=== PATIENT | female | born 1940 | race Caucasian/White ===

== ENCOUNTER 2019-03-06 19:13 | Inpatient (IN) ==
[2019-03-06 20:01] LABS: Basophils # 0.1 K/mcL (0.0-0.2); Basophils % 0.5 %; Bilirubin,Urine Negative (Negative); Blood,Urine Negative (Negative); Clarity,Urine Cloudy (Clear); Color,Urine Yellow (Yellow); Eosinophils # 0.1 K/mcL (0.0-0.6); Eosinophils % 1.3 %; Glucose,Urine (UA) Normal (Normal); Hematocrit 41.8 % (35.3-44.9); Hemoglobin 14.1 g/dL (11.5-15.4); Immature Granulocytes % 0.3 % (0-4); Ketones,Urine Negative (Negative); Leukocyte Esterase,Urine Negative (Negative); Lymphocytes # 2.7 K/mcL (0.6-4.6); Lymphocytes % 25.3 %; Mean Corpuscular HGB Conc 33.7 g/dL (31.6-35.5); Mean Corpuscular Hemoglobin 33.7 pg (28.0-33.3); Mean Corpuscular Volume 99.8 fL (83.0-100.0); Mean Platelet Volume 8.9 fL (9.4-12.4); Monocytes # 0.9 K/mcL (0.0-1.3); Neutrophils # 6.9 K/mcL (1.6-8.9); Nitrite,Urine Negative (Negative); Platelet Count 368 K/mcL (140-400); Protein,Urine 30 mg/dL (Neg-Trace); Red Blood Count 4.19 M/mcL (3.82-4.97); Red Cell Distribution Width 13.9 % (11.5-14.5); Segmented Neutrophils % 64.6 %; Specific Gravity,Urine 1.018 (1.010-1.025); Urobilinogen,Urine Normal (Normal); White Blood Count 10.7 K/mcL (4.3-11.1)
[2019-03-06 20:02] LABS: Bacteria,Urine Moderate per hpf (None-Few); Squamous Epithelial Cell,Urine Many per lpf (None-Few)
[2019-03-06 20:19] LABS: Hyaline Casts,Urine Few per lpf (None-Few); RBC,Urine 0-3 per hpf (0-3)
[2019-03-06 20:23] LABS: Potassium 3.6 mEq/L (3.5-5.1)
[2019-03-06 20:24] LABS: Troponin I 0.03 ng/mL (< 0.04)
[2019-03-06 20:43] LABS: Prothrombin Time 22.2 Seconds (9.4-12.1)
[2019-03-06] MEDS ORDERED: Naloxone 0.4 MG/ML INJ IVP PRN (21:41)
[2019-03-07] MEDS ORDERED: *HR* HYDROcodone/Acet 5/325 mg TABLET PO PRN (00:01)
[2019-03-07 00:42] LABS: Basophils % 0.4 %; Eosinophils # 0.1 K/mcL (0.0-0.6); Eosinophils % 1.1 %; Hematocrit 42.1 % (35.3-44.9); Hemoglobin 13.7 g/dL (11.5-15.4); Immature Granulocytes % 0.2 % (0-4); Lymphocytes # 2.9 K/mcL (0.6-4.6); Lymphocytes % 31.2 %; Mean Corpuscular HGB Conc 32.5 g/dL (31.6-35.5); Mean Corpuscular Hemoglobin 33.2 pg (28.0-33.3); Mean Corpuscular Volume 101.9 fL (83.0-100.0); Mean Platelet Volume 9.2 fL (9.4-12.4); Monocytes # 0.7 K/mcL (0.0-1.3); Monocytes % 7.4 %; Neutrophils # 5.6 K/mcL (1.6-8.9); Platelet Count 343 K/mcL (140-400); Red Blood Count 4.13 M/mcL (3.82-4.97); Red Cell Distribution Width 13.8 % (11.5-14.5); Segmented Neutrophils % 59.7 %; White Blood Count 9.4 K/mcL (4.3-11.1)
[2019-03-07 01:02] LABS: Calcium 9.1 mg/dL (8.6-10.3); Potassium 3.6 mEq/L (3.5-5.1)
[2019-03-07] MEDS: Furosemide 20 MG TABLET PO SCH ×2 (09:55→18:05)
[2019-03-07] MEDS: Acetaminophen 325 MG TABLET PO PRN ×2 (09:55→14:29)
[2019-03-07] MEDS: Metoprolol XL (24 HR) Succ 50 MG TAB.ER.24H PO SCH (09:55)
[2019-03-07] MEDS ORDERED: levoFLOXacin 750 MG TABLET PO SCH (12:00)
[2019-03-07] MEDS ORDERED: Erythromycin OPTH Oint BOTH EYES SCH (13:00)
[2019-03-07] MEDS ORDERED: *HR* Rivaroxaban 10 MG TABLET PO SCH (17:00)
[2019-03-07] MEDS ORDERED: Metoprolol XL (24 HR) Succ 50 MG TAB.ER.24H PO SCH ×2 (18:00)
[2019-03-07] MEDS ORDERED: Melatonin 3 MG TABLET PO SCH (21:00)
[2019-03-08] MEDS: Acetaminophen 325 MG TABLET PO PRN (03:06)
[2019-03-08] MEDS ORDERED: Metoclopramide 10 MG/2 ML VIAL IVP ONE (04:36)
[2019-03-08 06:43] VITALS: BP 124/79
[2019-03-08] MEDS: Metoprolol XL (24 HR) Succ 50 MG TAB.ER.24H PO SCH (10:40)
[2019-03-08] MEDS: Furosemide 20 MG TABLET PO SCH (10:40)
== END 2019-03-08 12:18 | disposition home or self-care (01) | DRG 308 ==
LOC: EMEROOARM 19:13 → 3BNU 19:13
PROVIDERS: ADMIT Internal Medicine; ATTEND Internal Medicine

== ENCOUNTER 2019-05-09 13:15 | Inpatient (IN) ==
[2019-05-09 14:13] LABS: Basophils % 0.4 %; Eosinophils # 0.1 K/mcL (0.0-0.6); Eosinophils % 1.2 %; Hematocrit 44.9 % (35.3-44.9); Hemoglobin 14.3 g/dL (11.5-15.4); Immature Granulocytes % 0.3 % (0-4); Lymphocytes # 2.4 K/mcL (0.6-4.6); Lymphocytes % 22.7 %; Mean Corpuscular HGB Conc 31.8 g/dL (31.6-35.5); Mean Corpuscular Hemoglobin 32.4 pg (28.0-33.3); Mean Corpuscular Volume 101.8 fL (83.0-100.0); Mean Platelet Volume 9.1 fL (9.4-12.4); Monocytes # 0.8 K/mcL (0.0-1.3); Monocytes % 7.5 %; Neutrophils # 7.2 K/mcL (1.6-8.9); Platelet Count 321 K/mcL (140-400); Red Blood Count 4.41 M/mcL (3.82-4.97); Red Cell Distribution Width 13.8 % (11.5-14.5); Segmented Neutrophils % 67.9 %; White Blood Count 10.6 K/mcL (4.3-11.1)
[2019-05-09] MEDS ORDERED: Amiodarone Premix 150 MG/100 ML BAG IVPB ONE (14:37)
[2019-05-09] MEDS ORDERED: Amiodarone Premix 360 MG/200 ML BAG IVC ONE (14:41)
[2019-05-09 15:14] LABS: Thyroid Stimulating Hormone 3.442 mcIU/mL (0.340-5.600); Troponin I 0.05 ng/mL (< 0.04)
[2019-05-09 15:26] LABS: Calcium 9.1 mg/dL (8.6-10.3); Potassium 3.7 mEq/L (3.5-5.1)
[2019-05-09] MEDS ORDERED: Naloxone 0.4 MG/ML INJ IVP PRN (15:26)
[2019-05-09] MEDS ORDERED: *HR* Rivaroxaban 10 MG TABLET PO SCH (18:00)
[2019-05-09] MEDS: Furosemide 20 MG TABLET PO SCH (20:22)
[2019-05-09] MEDS: lisinopriL 5 MG TABLET PO SCH (20:22)
[2019-05-09] MEDS: Amiodarone Premix 360 MG/200 ML BAG IVC SCH (21:23)
[2019-05-10 05:24] LABS: Basophils % 0.4 %; Eosinophils # 0.1 K/mcL (0.0-0.6); Eosinophils % 1.1 %; Hematocrit 40.8 % (35.3-44.9); Hemoglobin 13.4 g/dL (11.5-15.4); Immature Granulocytes % 0.2 % (0-4); Lymphocytes # 2.8 K/mcL (0.6-4.6); Lymphocytes % 27.6 %; Mean Corpuscular HGB Conc 32.8 g/dL (31.6-35.5); Mean Corpuscular Hemoglobin 33.1 pg (28.0-33.3); Mean Corpuscular Volume 100.7 fL (83.0-100.0); Mean Platelet Volume 9.3 fL (9.4-12.4); Monocytes # 0.8 K/mcL (0.0-1.3); Monocytes % 7.7 %; Neutrophils # 6.4 K/mcL (1.6-8.9); Platelet Count 304 K/mcL (140-400); Red Blood Count 4.05 M/mcL (3.82-4.97); Red Cell Distribution Width 13.7 % (11.5-14.5); White Blood Count 10.1 K/mcL (4.3-11.1)
[2019-05-10 05:45] LABS: Calcium 8.9 mg/dL (8.6-10.3); Potassium 3.6 mEq/L (3.5-5.1)
[2019-05-10 05:48] LABS: Troponin I 0.06 ng/mL (< 0.04)
[2019-05-10] MEDS: Furosemide 20 MG TABLET PO SCH ×2 (09:32→21:54)
[2019-05-10] MEDS: Multivit/Ca/Min/Fe/FA 1 TAB TABLET PO SCH ×2 (09:32→12:16)
[2019-05-10] MEDS: Ascorbic Acid 500 MG TABLET PO SCH ×2 (09:32→12:16)
[2019-05-10] MEDS: Metoprolol XL (24 HR) Succ 50 MG TAB.ER.24H PO SCH ×2 (09:33→21:54)
[2019-05-10] MEDS: lisinopriL 5 MG TABLET PO SCH ×2 (09:33→21:54)
[2019-05-10] MEDS: Patient Taking Own Medication 1 EACH PO SCH (09:34)
[2019-05-10] MEDS: MSM PO SCH (09:34)
[2019-05-10] MEDS: [UNRECOGNIZED DRUG - OTHER] PO SCH (09:34)
[2019-05-10] MEDS: GLUCOSAMINE PO SCH (09:34)
[2019-05-10] MEDS: Amiodarone Premix 360 MG/200 ML BAG IVC SCH ×2 (11:34→23:37)
[2019-05-10 14:07] LABS: Hematocrit 41.3 % (35.3-44.9); Hemoglobin 13.3 g/dL (11.5-15.4); Mean Corpuscular HGB Conc 32.2 g/dL (31.6-35.5); Mean Corpuscular Hemoglobin 32.5 pg (28.0-33.3); Platelet Count 275 K/mcL (140-400); Red Blood Count 4.09 M/mcL (3.82-4.97); Red Cell Distribution Width 13.7 % (11.5-14.5); White Blood Count 9.3 K/mcL (4.3-11.1)
[2019-05-10] MEDS: Heparin 25,000 UNIT/250 ML D5W 25,000 UNIT/250 ML IV.SOLN IVC SCH (17:45)
[2019-05-10] MEDS: *HR* Promethazine 25 MG/ML VIAL IVP PRN ×2 (17:45→23:38)
[2019-05-10] MEDS ORDERED: *HR* Heparin 5,000 UNIT/ML VIAL IVP ONE ×2 (18:00)
[2019-05-10] MEDS ORDERED: *HR* Heparin 5,000 UNIT/ML VIAL IVP PRN ×2 (18:00)
[2019-05-10] MEDS ORDERED: Heparin 25,000 UNIT/250 ML D5W 25,000 UNIT/250 ML IV.SOLN IVC SCH (18:00)
[2019-05-10 18:55] LABS: INR 1.8; Prothrombin Time 20.5 Seconds (9.4-12.1)
[2019-05-10 18:58] LABS: Activated Partial Thrombo Time 46.2 Seconds (26.0-36.0)
[2019-05-11 01:04] LABS: Potassium 3.9 mEq/L (3.5-5.1)
[2019-05-11] MEDS ORDERED: 0.9 % Sodium Chloride 1,000 ML IVC SCH ×2 (08:30→08:47)
[2019-05-11] MEDS: Multivit/Ca/Min/Fe/FA 1 TAB TABLET PO SCH (08:35)
[2019-05-11] MEDS: Metoprolol XL (24 HR) Succ 50 MG TAB.ER.24H PO SCH ×2 (08:35→20:42)
[2019-05-11] MEDS: Furosemide 20 MG TABLET PO SCH ×2 (08:35→20:42)
[2019-05-11] MEDS: MSM PO SCH (08:36)
[2019-05-11] MEDS: GLUCOSAMINE PO SCH (08:36)
[2019-05-11] MEDS: lisinopriL 5 MG TABLET PO SCH ×2 (08:36→20:42)
[2019-05-11] MEDS: Patient Taking Own Medication 1 EACH PO SCH (08:36)
[2019-05-11] MEDS: [UNRECOGNIZED DRUG - OTHER] PO SCH (08:36)
[2019-05-11] MEDS ORDERED: ISOVUE-370 200 ML INFUS..BTL ONE ×2 (13:16→13:17)
[2019-05-11] MEDS ORDERED: *HR* Heparin 10,000 UNIT/10 ML VIAL ONE (13:16)
[2019-05-11] MEDS ORDERED: Nitroglycerin 1,000 MCG/10 ML VIAL IV ONE (13:16)
[2019-05-11] MEDS ORDERED: Heparin 1,000 UNITS/500 mL 500 ML ONE (13:16)
[2019-05-11] MEDS ORDERED: 0.9 % Sodium Chloride 2,000 ML ONE (13:16)
[2019-05-11] MEDS ORDERED: *HR* FentaNYL (PF) 100 MCG/2 ML VIAL ONE (13:58)
[2019-05-11] MEDS ORDERED: *HR* Midazolam HCl 2 MG/2 ML VIAL ONE (13:58)
[2019-05-11] MEDS: *HR* Amiodarone 200 MG TABLET PO SCH (20:42)
[2019-05-11] MEDS: Heparin 25,000 UNIT/250 ML D5W 25,000 UNIT/250 ML IV.SOLN IVC SCH (20:54)
[2019-05-12 05:47] LABS: Calcium 8.8 mg/dL (8.6-10.3); Potassium 3.7 mEq/L (3.5-5.1)
[2019-05-12] MEDS: lisinopriL 5 MG TABLET PO SCH (08:23)
[2019-05-12] MEDS: Furosemide 20 MG TABLET PO SCH (08:23)
[2019-05-12] MEDS: Multivit/Ca/Min/Fe/FA 1 TAB TABLET PO SCH (08:23)
[2019-05-12] MEDS: *HR* Amiodarone 200 MG TABLET PO SCH (08:23)
[2019-05-12] MEDS: Metoprolol XL (24 HR) Succ 50 MG TAB.ER.24H PO SCH (08:23)
[2019-05-12] MEDS: Ascorbic Acid 500 MG TABLET PO SCH (08:23)
[2019-05-12] MEDS: MSM PO SCH (08:24)
[2019-05-12] MEDS: Patient Taking Own Medication 1 EACH PO SCH (08:24)
[2019-05-12] MEDS: [UNRECOGNIZED DRUG - OTHER] PO SCH (08:24)
[2019-05-12] MEDS: GLUCOSAMINE PO SCH (08:24)
[2019-05-12 11:11] VITALS: BP 131/81
[2019-05-12] MEDS ORDERED: *HR* Rivaroxaban 10 MG TABLET PO SCH (14:00)
== END 2019-05-12 16:27 | disposition home health service (06) | DRG 286 ==
LOC: EMEROOARM 13:15 → 2NNU 13:15 → SUATTDRO 15:27 → 2NNU 16:37
PROVIDERS: ADMIT Internal Medicine; ATTEND Family Medicine

== ENCOUNTER 2019-05-15 00:50 | Inpatient (IN) ==
[2019-05-15] MEDS ORDERED: Acetaminophen 325 MG TABLET PO PRN (04:00)
[2019-05-15] MEDS ORDERED: Naloxone 0.4 MG/ML INJ IVP PRN (04:00)
[2019-05-15] MEDS ORDERED: *HR* Promethazine 25 MG/ML VIAL IVP PRN (04:00)
[2019-05-15] MEDS ORDERED: D5% in Water 1,000 ML IVC PRN (04:05)
[2019-05-15] MEDS ORDERED: Dextrose Gel 15 GM/37.5 ML TUBE PO PRN ×2 (04:05)
[2019-05-15] MEDS ORDERED: *HR* Dextrose 50 % in Water (Syg) 50 ML SYRINGE IVP PRN (04:05)
[2019-05-15 05:28] LABS: Basophils % 0.3 %; Eosinophils # 0.1 K/mcL (0.0-0.6); Hematocrit 40.9 % (35.3-44.9); Hemoglobin 13.1 g/dL (11.5-15.4); Immature Granulocytes % 0.4 % (0-4); Lymphocytes # 2.3 K/mcL (0.6-4.6); Lymphocytes % 24.6 %; Mean Corpuscular Hemoglobin 32.6 pg (28.0-33.3); Mean Corpuscular Volume 101.7 fL (83.0-100.0); Mean Platelet Volume 9.4 fL (9.4-12.4); Monocytes # 0.8 K/mcL (0.0-1.3); Monocytes % 8.6 %; Platelet Count 297 K/mcL (140-400); Red Blood Count 4.02 M/mcL (3.82-4.97); Red Cell Distribution Width 13.9 % (11.5-14.5); Segmented Neutrophils % 65.1 %; White Blood Count 9.2 K/mcL (4.3-11.1)
[2019-05-15 05:41] LABS: Prothrombin Time 33.7 Seconds (9.4-12.1)
[2019-05-15 05:50] LABS: Calcium 8.4 mg/dL (8.6-10.3); Magnesium 1.8 mg/dL (1.6-2.6); Phosphorous 4.1 mg/dL (2.7-4.5); Potassium 3.3 mEq/L (3.5-5.1)
[2019-05-15 05:57] LABS: Troponin I 0.46 ng/mL (< 0.04)
[2019-05-15] MEDS: Insulin LISPRO 300 UNITS/3 ML VIAL SQ SCH ×3 (09:01→16:35)
[2019-05-15] MEDS: *HR* Amiodarone 200 MG TABLET PO SCH ×2 (13:09→21:30)
[2019-05-15] MEDS: Metoprolol XL (24 HR) Succ 50 MG TAB.ER.24H PO SCH ×2 (13:09→21:30)
[2019-05-15] MEDS: Furosemide 20 MG TABLET PO SCH (16:39)
[2019-05-15] MEDS ORDERED: *HR* Rivaroxaban 10 MG TABLET PO SCH (18:00)
[2019-05-15] MEDS ORDERED: Insulin LISPRO 300 UNITS/3 ML VIAL SQ SCH (21:00)
[2019-05-15] MEDS: lisinopriL 5 MG TABLET PO SCH (21:30)
[2019-05-16] MEDS: Insulin LISPRO 300 UNITS/3 ML VIAL SQ SCH (07:50)
[2019-05-16] MEDS: Furosemide 20 MG TABLET PO SCH (08:10)
[2019-05-16] MEDS: *HR* Amiodarone 200 MG TABLET PO SCH ×2 (08:10→22:32)
[2019-05-16] MEDS: lisinopriL 5 MG TABLET PO SCH ×2 (08:11→22:32)
[2019-05-16] MEDS: Metoprolol XL (24 HR) Succ 50 MG TAB.ER.24H PO SCH ×2 (08:11→22:32)
[2019-05-16] MEDS ORDERED: *HR* Amiodarone 200 MG TABLET PO ONE (10:00)
[2019-05-16 13:05] LABS: Basophils % 0.4 %; Eosinophils # 0.2 K/mcL (0.0-0.6); Eosinophils % 2.3 %; Hematocrit 42.1 % (35.3-44.9); Hemoglobin 13.5 g/dL (11.5-15.4); Immature Granulocytes % 0.6 % (0-4); Lymphocytes # 2.3 K/mcL (0.6-4.6); Lymphocytes % 25.2 %; Mean Corpuscular HGB Conc 32.1 g/dL (31.6-35.5); Mean Corpuscular Hemoglobin 32.8 pg (28.0-33.3); Mean Corpuscular Volume 102.2 fL (83.0-100.0); Mean Platelet Volume 9.2 fL (9.4-12.4); Monocytes # 0.7 K/mcL (0.0-1.3); Monocytes % 7.2 %; Neutrophils # 5.8 K/mcL (1.6-8.9); Nucleated Red Blood Cells 0.2 /100 WBC (0); Platelet Count 309 K/mcL (140-400); Red Blood Count 4.12 M/mcL (3.82-4.97); Red Cell Distribution Width 14.2 % (11.5-14.5); Segmented Neutrophils % 64.3 %
[2019-05-16 13:37] LABS: Calcium 8.9 mg/dL (8.6-10.3); Potassium 4.2 mEq/L (3.5-5.1)
[2019-05-16] MEDS: Furosemide 40 MG/4 ML VIAL IVP SCH ×2 (13:47→17:43)
[2019-05-16] MEDS: *HR* Rivaroxaban 15 MG TABLET PO SCH (17:43)
[2019-05-17 03:41] LABS: Calcium 8.6 mg/dL (8.6-10.3); Potassium 4.3 mEq/L (3.5-5.1)
[2019-05-17] MEDS: lisinopriL 5 MG TABLET PO SCH ×2 (10:19→21:14)
[2019-05-17] MEDS: Furosemide 40 MG/4 ML VIAL IVP SCH ×2 (10:19→18:11)
[2019-05-17] MEDS: Metoprolol XL (24 HR) Succ 50 MG TAB.ER.24H PO SCH ×2 (10:19→21:14)
[2019-05-17] MEDS: *HR* Amiodarone 200 MG TABLET PO SCH ×2 (10:19→21:14)
[2019-05-17] MEDS: *HR* Rivaroxaban 15 MG TABLET PO SCH (18:11)
[2019-05-18 02:31] LABS: Calcium 8.7 mg/dL (8.6-10.3); Potassium 3.9 mEq/L (3.5-5.1)
[2019-05-18] MEDS: Furosemide 40 MG/4 ML VIAL IVP SCH (10:08)
[2019-05-18] MEDS: Metoprolol XL (24 HR) Succ 50 MG TAB.ER.24H PO SCH ×2 (10:08→21:34)
[2019-05-18] MEDS: lisinopriL 5 MG TABLET PO SCH ×2 (10:08→21:35)
[2019-05-18] MEDS: *HR* Amiodarone 200 MG TABLET PO SCH ×2 (10:08→21:34)
[2019-05-18] MEDS: *HR* Rivaroxaban 15 MG TABLET PO SCH (17:28)
[2019-05-19 05:00] LABS: Calcium 8.6 mg/dL (8.6-10.3); Magnesium 2.1 mg/dL (1.6-2.6); Phosphorous 4.4 mg/dL (2.7-4.5)
[2019-05-19] MEDS: lisinopriL 5 MG TABLET PO SCH (08:39)
[2019-05-19] MEDS: *HR* Amiodarone 200 MG TABLET PO SCH (08:39)
[2019-05-19] MEDS: Metoprolol XL (24 HR) Succ 50 MG TAB.ER.24H PO SCH (08:40)
[2019-05-19] MEDS ORDERED: Furosemide 40 MG/4 ML VIAL IVP SCH (09:00)
[2019-05-19 11:28] VITALS: BP 140/95
== END 2019-05-19 17:04 | DRG 280 ==
LOC: 2NENU → SUATTDRO 05-16 18:38
PROVIDERS: ADMIT Internal Medicine; ATTEND Internal Medicine

== ENCOUNTER 2020-04-05 16:32 | Inpatient (IN) ==
[2020-04-05] MEDS ORDERED: 0.9 % Sodium Chloride 1,000 ML IVC ONE (17:43)
[2020-04-05 18:27] LABS: Basophils % 0.3 %; Eosinophils # 0.1 K/mcL (0.0-0.6); Eosinophils % 1.3 %; Hematocrit 47.1 % (35.3-44.9); Hemoglobin 15.1 g/dL (11.5-15.4); Immature Granulocytes % 0.3 % (0-4); Lymphocytes # 1.2 K/mcL (0.6-4.6); Lymphocytes % 20.3 %; Mean Corpuscular HGB Conc 32.1 g/dL (31.6-35.5); Mean Corpuscular Hemoglobin 32.5 pg (28.0-33.3); Mean Corpuscular Volume 101.3 fL (83.0-100.0); Mean Platelet Volume 9.4 fL (9.4-12.4); Monocytes # 0.6 K/mcL (0.0-1.3); Monocytes % 9.8 %; Neutrophils # 4.1 K/mcL (1.6-8.9); Platelet Count 230 K/mcL (140-400); Red Blood Count 4.65 M/mcL (3.82-4.97); Red Cell Distribution Width 17.2 % (11.5-14.5)
[2020-04-05 18:56] LABS: Magnesium 3.1 mg/dL (1.6-2.6); Troponin I 0.05 ng/mL (< 0.04)
[2020-04-05 19:03] LABS: Albumin 3.1 g/dL (3.5-5.7); Albumin/Globulin Ratio 1.1 (1.1-2.2); Bilirubin,Direct 0.3 mg/dL (0.0-0.2); Bilirubin,Total 1.3 mg/dL (0.3-1.0); Calcium 8.8 mg/dL (8.6-10.3); Globulin 2.8 g/dL (2.4-3.5); Potassium 5.3 mEq/L (3.5-5.1); Total Protein 5.9 g/dL (6.4-8.9)
[2020-04-05 19:14] LABS: Bacteria,Urine Few per hpf (None-Few); Bilirubin,Urine Negative (Negative); Blood,Urine Small (Negative); Clarity,Urine Turbid (Clear); Color,Urine Yellow (Yellow); Glucose,Urine (UA) Normal (Normal); Hyaline Casts,Urine Many per lpf (None Seen); Ketones,Urine Negative (Negative); Leukocyte Esterase,Urine Trace (Negative); Mucus,Urine Few per lpf (None-Few); Nitrite,Urine Negative (Negative); Protein,Urine Trace mg/dL (Neg-Trace); RBC,Urine 0-3 per hpf (0-3); Specific Gravity,Urine 1.018 (1.010-1.025); Squamous Epithelial Cell,Urine Few per hpf (None-Few); Urobilinogen,Urine Normal (Normal); WBC,Urine 0-3 per hpf (0-3)
[2020-04-05] MEDS ORDERED: Naloxone 0.4 MG/ML INJ IVP PRN ×2 (20:42→21:33)
[2020-04-05] MEDS ORDERED: Ondansetron 4 MG/2 ML VIAL IVP PRN (21:33)
[2020-04-05] MEDS ORDERED: GuaiFENesin/Dextromethorphan TABLET PO SCH (21:45)
[2020-04-05] MEDS ORDERED: 0.9 % Sodium Chloride 1,000 ML IVC SCH (21:45)
[2020-04-06 01:37] LABS: Hematocrit 46.4 % (35.3-44.9); Mean Corpuscular HGB Conc 32.3 g/dL (31.6-35.5); Mean Corpuscular Hemoglobin 32.8 pg (28.0-33.3); Mean Corpuscular Volume 101.5 fL (83.0-100.0); Mean Platelet Volume 9.6 fL (9.4-12.4); Platelet Count 211 K/mcL (140-400); Red Blood Count 4.57 M/mcL (3.82-4.97); Red Cell Distribution Width 17.2 % (11.5-14.5); White Blood Count 6.7 K/mcL (4.3-11.1)
[2020-04-06 01:59] LABS: Albumin 3.1 g/dL (3.5-5.7); Albumin/Globulin Ratio 1.1 (1.1-2.2); Bilirubin,Total 1.4 mg/dL (0.3-1.0); Calcium 8.6 mg/dL (8.6-10.3); Globulin 2.7 g/dL (2.4-3.5); Potassium 4.8 mEq/L (3.5-5.1); Total Protein 5.8 g/dL (6.4-8.9)
[2020-04-06 02:08] LABS: Troponin I 0.04 ng/mL (< 0.04)
[2020-04-06 02:45] LABS: Thyroid Stimulating Hormone 58.092 mcIU/mL (0.340-5.600)
[2020-04-06 07:29] LABS: Troponin I 0.04 ng/mL (< 0.04)
[2020-04-06] MEDS: *HR* Amiodarone 200 MG TABLET PO SCH ×2 (10:02→20:50)
[2020-04-06] MEDS: Metoprolol XL (24 HR) Succ 50 MG TAB.ER.24H PO SCH ×2 (10:02→20:50)
[2020-04-06] MEDS: GuaiFENesin/Pseudophedrine TABLET PO SCH ×2 (10:03→20:51)
[2020-04-06 12:04] LABS: Uric Acid 11.3 mg/dL (2.3-7.6)
[2020-04-06] MEDS ORDERED: Fluticasone Propionate Nasal 50 MCG/SPRAY BOTTLE NS PRN (12:49)
[2020-04-06 12:58] LABS: Hepatitis B Surface Antigen Nonreactive (Nonreactive)
[2020-04-06 13:27] LABS: Hepatitis C Virus Antibody Nonreactive (Nonreactive)
[2020-04-06 13:28] LABS: Hepatitis A Antibody IgM Nonreactive (Nonreactive); Hepatitis B Core IgM Nonreactive (Nonreactive)
[2020-04-06 14:38] LABS: Creatinine,Urine 140 mg/dL; Protein/Creatinine Ratio,Urine 0.19 mg/mg (0.00-0.20); Sodium, Urine < 10.0 mEq/L
[2020-04-06] MEDS: Acetaminophen 325 MG TABLET PO PRN (15:25)
[2020-04-06] MEDS ORDERED: *HR* Rivaroxaban 10 MG TABLET PO SCH (18:00)
[2020-04-06] MEDS: *HR* Rivaroxaban 15 MG TABLET PO SCH (18:01)
[2020-04-06] MEDS: Nystatin Cream 15 GM TUBE TP SCH (20:50)
[2020-04-06] MEDS: Magnesium Oxide 400 MG TABLET PO SCH (20:51)
[2020-04-07 02:54] LABS: Basophils % 0.3 %; Eosinophils # 0.1 K/mcL (0.0-0.6); Eosinophils % 1.4 %; Hematocrit 49.8 % (35.3-44.9); Immature Granulocytes % 0.3 % (0-4); Lymphocytes # 1.5 K/mcL (0.6-4.6); Lymphocytes % 23.3 %; Mean Corpuscular HGB Conc 32.1 g/dL (31.6-35.5); Mean Corpuscular Hemoglobin 32.2 pg (28.0-33.3); Mean Corpuscular Volume 100.2 fL (83.0-100.0); Mean Platelet Volume 9.6 fL (9.4-12.4); Monocytes # 0.5 K/mcL (0.0-1.3); Monocytes % 8.2 %; Neutrophils # 4.3 K/mcL (1.6-8.9); Nucleated Red Blood Cells 0.3 /100 WBC (0); Platelet Count 233 K/mcL (140-400); Red Blood Count 4.97 M/mcL (3.82-4.97); Red Cell Distribution Width 17.1 % (11.5-14.5); Segmented Neutrophils % 66.5 %; White Blood Count 6.5 K/mcL (4.3-11.1)
[2020-04-07 03:06] LABS: Calcium 8.9 mg/dL (8.6-10.3); Potassium 4.9 mEq/L (3.5-5.1)
[2020-04-07 03:08] LABS: Complement C3 83 mg/dL (87-200)
[2020-04-07 03:16] LABS: Rheumatoid Factor 98 IU/mL (Less than 14)
[2020-04-07 03:43] LABS: Vitamin B12 > 1500 pg/mL (250-1100); Vitamin D 25 Hydroxy 41 ng/mL (30-80)
[2020-04-07] MEDS: GuaiFENesin/Pseudophedrine TABLET PO SCH ×2 (09:02→19:53)
[2020-04-07] MEDS: Magnesium Oxide 400 MG TABLET PO SCH ×2 (09:02→19:53)
[2020-04-07] MEDS: Nystatin Cream 15 GM TUBE TP SCH ×3 (09:02→19:55)
[2020-04-07] MEDS: Multivit/Ca/Min/Fe/FA 1 TAB TABLET PO SCH (09:02)
[2020-04-07] MEDS: Metoprolol XL (24 HR) Succ 50 MG TAB.ER.24H PO SCH ×2 (09:02→19:53)
[2020-04-07] MEDS: *HR* Amiodarone 200 MG TABLET PO SCH ×2 (09:02→19:53)
[2020-04-07] MEDS: *HR* Rivaroxaban 15 MG TABLET PO SCH (18:33)
[2020-04-08 04:57] LABS: Basophils % 0.3 %; Eosinophils # 0.1 K/mcL (0.0-0.6); Eosinophils % 1.4 %; Hematocrit 50.3 % (35.3-44.9); Hemoglobin 16.5 g/dL (11.5-15.4); Immature Granulocytes % 0.3 % (0-4); Lymphocytes # 1.6 K/mcL (0.6-4.6); Lymphocytes % 22.5 %; Mean Corpuscular HGB Conc 32.8 g/dL (31.6-35.5); Mean Corpuscular Hemoglobin 32.6 pg (28.0-33.3); Mean Corpuscular Volume 99.4 fL (83.0-100.0); Mean Platelet Volume 9.6 fL (9.4-12.4); Monocytes # 0.8 K/mcL (0.0-1.3); Monocytes % 10.8 %; Neutrophils # 4.7 K/mcL (1.6-8.9); Nucleated Red Blood Cells 0.3 /100 WBC (0); Platelet Count 201 K/mcL (140-400); Red Blood Count 5.06 M/mcL (3.82-4.97); Red Cell Distribution Width 17.5 % (11.5-14.5); Segmented Neutrophils % 64.7 %; White Blood Count 7.2 K/mcL (4.3-11.1)
[2020-04-08 05:11] LABS: Calcium 9.1 mg/dL (8.6-10.3); Potassium 5.5 mEq/L (3.5-5.1)
[2020-04-08] MEDS: Magnesium Oxide 400 MG TABLET PO SCH ×2 (09:09→20:25)
[2020-04-08] MEDS: *HR* Amiodarone 200 MG TABLET PO SCH ×2 (09:09→20:25)
[2020-04-08] MEDS: Multivit/Ca/Min/Fe/FA 1 TAB TABLET PO SCH (09:09)
[2020-04-08] MEDS: GuaiFENesin/Pseudophedrine TABLET PO SCH ×2 (09:09→20:25)
[2020-04-08] MEDS: Metoprolol XL (24 HR) Succ 50 MG TAB.ER.24H PO SCH ×2 (09:09→20:25)
[2020-04-08] MEDS: Nystatin Cream 15 GM TUBE TP SCH ×3 (09:17→21:20)
[2020-04-08] MEDS ORDERED: SODIUM ZIRCONIUM CYCLOSILICATE 5 GM POWD.PACK PO ONE (11:00)
[2020-04-08] MEDS: Lactulose Oral Soln 20 GM/30 ML UDC PO SCH ×2 (12:59→20:25)
[2020-04-08] MEDS ORDERED: Lactulose 200 GM, Sodium Chloride IRRigation 700 ML RC ONE (17:26)
[2020-04-09 02:54] LABS: Basophils % 0.3 %; Eosinophils # 0.3 K/mcL (0.0-0.6); Eosinophils % 3.5 %; Hematocrit 52.1 % (35.3-44.9); Hemoglobin 16.7 g/dL (11.5-15.4); Immature Granulocytes % 0.4 % (0-4); Lymphocytes # 1.4 K/mcL (0.6-4.6); Lymphocytes % 18.3 %; Mean Corpuscular HGB Conc 32.1 g/dL (31.6-35.5); Mean Corpuscular Hemoglobin 32.6 pg (28.0-33.3); Mean Corpuscular Volume 101.6 fL (83.0-100.0); Mean Platelet Volume 10.3 fL (9.4-12.4); Monocytes # 0.7 K/mcL (0.0-1.3); Monocytes % 9.8 %; Nucleated Red Blood Cells 0.3 /100 WBC (0); Platelet Count 167 K/mcL (140-400); Red Blood Count 5.13 M/mcL (3.82-4.97); Red Cell Distribution Width 17.8 % (11.5-14.5); Segmented Neutrophils % 67.7 %; White Blood Count 7.4 K/mcL (4.3-11.1)
[2020-04-09 03:12] LABS: Calcium 9.3 mg/dL (8.6-10.3); Potassium 5.8 mEq/L (3.5-5.1)
[2020-04-09] MEDS ORDERED: 0.9 % Sodium Chloride 250 ML IVC PRN (07:23)
[2020-04-09] MEDS ORDERED: 0.9 % Sodium Chloride 1,000 ML PRIME SCH (07:30)
[2020-04-09] MEDS: GuaiFENesin/Pseudophedrine TABLET PO SCH ×2 (07:36→20:17)
[2020-04-09] MEDS: Multivit/Ca/Min/Fe/FA 1 TAB TABLET PO SCH (07:36)
[2020-04-09] MEDS: Metoprolol XL (24 HR) Succ 50 MG TAB.ER.24H PO SCH ×2 (07:36→20:17)
[2020-04-09] MEDS: Magnesium Oxide 400 MG TABLET PO SCH ×2 (07:36→20:17)
[2020-04-09] MEDS: *HR* Amiodarone 200 MG TABLET PO SCH ×2 (07:38→20:17)
[2020-04-09] MEDS: Nystatin Cream 15 GM TUBE TP SCH ×3 (07:38→20:18)
[2020-04-09] MEDS: Lactulose Oral Soln 20 GM/30 ML UDC PO SCH ×2 (07:38→20:17)
[2020-04-09] MEDS ORDERED: Heparin 1,000 UNITS/500 mL 500 ML ONE (08:07)
[2020-04-09] MEDS ORDERED: Lidocaine/EPI 1:100k 1% 50 ML VIAL ONE (08:08)
[2020-04-09] MEDS ORDERED: *HR* Heparin 5,000 UNIT/ML VIAL ONE (08:25)
[2020-04-09 09:10] LABS: Lambda Qnt Free Light Chains 34.57 mg/L (5.71-26.30)
[2020-04-09 09:24] LABS: Kappa Qnt Free Light Chains 95.33 mg/L (3.30-19.40)
[2020-04-09] MEDS: Acetaminophen 325 MG TABLET PO PRN ×2 (12:56→22:12)
[2020-04-09 21:34] LABS: Alpha 2 Globulin (PEP) 0.59 g/dL (0.48-1.05); Beta Globulin (PEP) 0.75 g/dL (0.48-1.10)
[2020-04-10 05:12] LABS: INR 2.7; Prothrombin Time 30.5 Seconds (9.4-12.1)
[2020-04-10 05:13] LABS: Basophils % 0.1 %; Hematocrit 48.4 % (35.3-44.9); Hemoglobin 16.4 g/dL (11.5-15.4); Immature Granulocytes % 0.4 % (0-4); Lymphocytes # 1.1 K/mcL (0.6-4.6); Lymphocytes % 7.1 %; Mean Corpuscular HGB Conc 33.9 g/dL (31.6-35.5); Mean Corpuscular Hemoglobin 33.5 pg (28.0-33.3); Mean Corpuscular Volume 98.8 fL (83.0-100.0); Monocytes # 0.8 K/mcL (0.0-1.3); Monocytes % 4.8 %; Platelet Count 179 K/mcL (140-400); Red Cell Distribution Width 18.2 % (11.5-14.5); Segmented Neutrophils % 87.6 %
[2020-04-10 05:16] LABS: Neutrophils # 13.8 K/mcL (1.6-8.9); White Blood Count 15.7 K/mcL (4.3-11.1)
[2020-04-10 05:32] LABS: Calcium 8.9 mg/dL (8.6-10.3); Potassium 4.4 mEq/L (3.5-5.1)
[2020-04-10] MEDS ORDERED: 0.9 % Sodium Chloride 250 ML IVC PRN (07:23)
[2020-04-10 09:07] LABS: IFE Reflexed NOT DONE
[2020-04-10] MEDS: Multivit/Ca/Min/Fe/FA 1 TAB TABLET PO SCH (10:29)
[2020-04-10] MEDS: Metoprolol XL (24 HR) Succ 50 MG TAB.ER.24H PO SCH ×2 (10:30→21:06)
[2020-04-10] MEDS: GuaiFENesin/Pseudophedrine TABLET PO SCH ×2 (10:30→21:07)
[2020-04-10] MEDS: Lactulose Oral Soln 20 GM/30 ML UDC PO SCH ×2 (10:30→21:07)
[2020-04-10] MEDS: Magnesium Oxide 400 MG TABLET PO SCH ×2 (10:30→21:06)
[2020-04-10] MEDS: *HR* Amiodarone 200 MG TABLET PO SCH ×2 (10:31→21:06)
[2020-04-10] MEDS: Nystatin Cream 15 GM TUBE TP SCH ×3 (10:32→21:08)
[2020-04-10] MEDS ORDERED: Albumin 25% 25gram/100mL 25 GM/100 ML IV.SOLN IVPB ONE (16:31)
[2020-04-10] MEDS ORDERED: Albumin 25% 25gram/100mL 25 GM/100 ML IV.SOLN ONE (16:37)
[2020-04-11 02:14] LABS: Basophils % 0.1 %; Eosinophils % 0.1 %; Hematocrit 48.3 % (35.3-44.9); Hemoglobin 15.6 g/dL (11.5-15.4); Immature Granulocytes % 0.3 % (0-4); Lymphocytes # 0.9 K/mcL (0.6-4.6); Lymphocytes % 6.1 %; Mean Corpuscular HGB Conc 32.3 g/dL (31.6-35.5); Mean Corpuscular Hemoglobin 32.4 pg (28.0-33.3); Mean Corpuscular Volume 100.4 fL (83.0-100.0); Mean Platelet Volume 10.3 fL (9.4-12.4); Monocytes # 0.8 K/mcL (0.0-1.3); Monocytes % 5.2 %; Neutrophils # 12.9 K/mcL (1.6-8.9); Platelet Count 151 K/mcL (140-400); Red Blood Count 4.81 M/mcL (3.82-4.97); Red Cell Distribution Width 18.1 % (11.5-14.5); Segmented Neutrophils % 88.2 %; White Blood Count 14.7 K/mcL (4.3-11.1)
[2020-04-11 02:35] LABS: Albumin 3.1 g/dL (3.5-5.7); Albumin/Globulin Ratio 1.2 (1.1-2.2); Bilirubin,Total 2.1 mg/dL (0.3-1.0); Globulin 2.5 g/dL (2.4-3.5); Magnesium 2.7 mg/dL (1.6-2.6); Phosphorous 4.3 mg/dL (2.7-4.5); Potassium 4.3 mEq/L (3.5-5.1); Total Protein 5.6 g/dL (6.4-8.9)
[2020-04-11] MEDS ORDERED: *HR* LORazepam 2 MG/ML VIAL IVP ONE (04:49)
[2020-04-11] MEDS ORDERED: 0.9 % Sodium Chloride 250 ML IVC PRN (07:09)
[2020-04-11 09:16] LABS: INR 1.6; Prothrombin Time 18.6 Seconds (9.4-12.1)
[2020-04-11] MEDS: Magnesium Oxide 400 MG TABLET PO SCH ×2 (12:39→20:10)
[2020-04-11] MEDS: Lactulose Oral Soln 20 GM/30 ML UDC PO SCH ×2 (12:40→20:10)
[2020-04-11] MEDS: Nystatin Cream 15 GM TUBE TP SCH ×3 (12:40→20:11)
[2020-04-11] MEDS: Metoprolol XL (24 HR) Succ 50 MG TAB.ER.24H PO SCH ×2 (12:40→20:11)
[2020-04-11] MEDS: Multivit/Ca/Min/Fe/FA 1 TAB TABLET PO SCH (12:40)
[2020-04-11] MEDS: *HR* Amiodarone 200 MG TABLET PO SCH ×2 (12:40→20:10)
[2020-04-11] MEDS: GuaiFENesin/Pseudophedrine TABLET PO SCH ×2 (12:40→20:10)
[2020-04-11] MEDS ORDERED: *HR* Dextrose 50 % in Water (Vial) 50 ML VIAL ONE (16:15)
[2020-04-11] MEDS ORDERED: *HR* Dextrose 50 % in Water (Vial) 50 ML VIAL IVP ONE (16:16)
[2020-04-11 16:34] LABS: ABG Base Excess 2 mEq/L (-2 to 3); ABG HCO3 26 mEq/L (21-27); ABG Oxygen Saturation 97 % (95-98); ABG PCO2 37 mmHg (35-45); ABG PH 7.45 pH Units (7.32-7.45); ABG PO2 91 mmHg (85-104); ABG TCO2 27 mEq/L (20-26)
[2020-04-12 03:34] LABS: Basophils % 0.2 %; Hematocrit 48.2 % (35.3-44.9); Hemoglobin 15.9 g/dL (11.5-15.4); Immature Granulocytes % 0.6 % (0-4); Lymphocytes # 0.9 K/mcL (0.6-4.6); Lymphocytes % 6.1 %; Mean Corpuscular Hemoglobin 32.6 pg (28.0-33.3); Mean Corpuscular Volume 98.8 fL (83.0-100.0); Mean Platelet Volume 10.3 fL (9.4-12.4); Monocytes # 0.7 K/mcL (0.0-1.3); Monocytes % 4.7 %; Neutrophils # 12.7 K/mcL (1.6-8.9); Platelet Count 120 K/mcL (140-400); Red Blood Count 4.88 M/mcL (3.82-4.97); Red Cell Distribution Width 17.8 % (11.5-14.5); Segmented Neutrophils % 88.4 %; White Blood Count 14.4 K/mcL (4.3-11.1)
[2020-04-12 03:48] LABS: Calcium 8.8 mg/dL (8.6-10.3); Potassium 4.5 mEq/L (3.5-5.1)
[2020-04-12 04:40] LABS: Platelet Estimate Normal (Normal)
[2020-04-12] MEDS ORDERED: *HR* Dextrose 50 % in Water (Vial) 50 ML VIAL IVP ONE (06:12)
[2020-04-12] MEDS: Lactulose Oral Soln 20 GM/30 ML UDC PO SCH (08:27)
[2020-04-12] MEDS: *HR* Amiodarone 200 MG TABLET PO SCH (08:27)
[2020-04-12] MEDS: Multivit/Ca/Min/Fe/FA 1 TAB TABLET PO SCH (08:27)
[2020-04-12] MEDS: GuaiFENesin/Pseudophedrine TABLET PO SCH (08:27)
[2020-04-12] MEDS: Magnesium Oxide 400 MG TABLET PO SCH (08:27)
[2020-04-12] MEDS: Nystatin Cream 15 GM TUBE TP SCH ×3 (08:28→19:50)
[2020-04-12] MEDS: Metoprolol XL (24 HR) Succ 50 MG TAB.ER.24H PO SCH (08:28)
[2020-04-12] MEDS ORDERED: Haloperidol Oral Conc 10 MG/5 ML UDC PO PRN (09:31)
[2020-04-12] MEDS ORDERED: *HR* LORazepam Oral Conc 2 MG/ML SL PRN (09:32)
[2020-04-12] MEDS ORDERED: Atropine 1% Opth Drops 100 DROP/5 ML BOTTLE SL PRN (09:33)
[2020-04-12 11:12] VITALS: BP 87/57
[2020-04-12] MEDS: Haloperidol Oral Conc 10 MG/5 ML UDC PO SCH ×2 (18:44→23:47)
[2020-04-13] MEDS: Haloperidol Oral Conc 10 MG/5 ML UDC PO SCH ×3 (06:13→18:11)
[2020-04-13] MEDS: Nystatin Cream 15 GM TUBE TP SCH ×2 (08:45→15:25)
== END 2020-04-13 20:15 | disposition expired | DRG 682 ==
LOC: 2ANU 16:32 → EMEROOARM 16:32 → 2ANU 20:15 → SUATTDRO 20:40 → 2ANU 04-08 15:40
PROVIDERS: ADMIT Internal Medicine; ATTEND Family Medicine
PROC: IRPERMA (2020-04-09 11:00)